=== PATIENT | female | born 1975 | race Caucasian/White ===

== ENCOUNTER 2017-05-23 22:14 | Emergency (ER) | payer MEDICAID ==
[~2017-05-23] VITALS: Ht 157.5 cm; Wt 69.9 kg
[2017-05-23 22:15] VITALS: BP 104/53
[2017-05-23] MEDS ORDERED: DEXAMETHASONE 4 MG TABLET ONE (23:11)
[2017-05-23] MEDS ORDERED: DEXAMETHASONE 4 MG TABLET PO ONE (23:30)
== END 2017-05-24 00:46 | disposition home or self-care (01) ==
LOC: ED 23:00
DX: J04.0 Acute laryngitis (principal); M54.5 Low back pain; Z87.891 Personal history of nicotine dependence
CPT/HCPCS: 70360; 72110; 99284

== ENCOUNTER 2017-10-20 13:43 | Emergency (ER) | payer SELFPAY ==
[~2017-10-20] VITALS: Ht 157.5 cm; Wt 66.8 kg
[2017-10-20 13:46] VITALS: BP 124/73
[2017-10-20] MEDS ORDERED: KETOROLAC 30 MG/1 ML IM ONE (15:00)
[2017-10-20] MEDS ORDERED: KETOROLAC 30 MG/1 ML ONE (15:12)
== END 2017-10-20 16:06 | disposition home or self-care (01) ==
LOC: ED 16:00
DX: S46.912A Strain of unspecified muscle, fascia and tendon at shoulder and upper arm level, left arm, initial encounter (principal); S29.012A Strain of muscle and tendon of back wall of thorax, initial encounter; M25.532 Pain in left wrist; F17.200 Nicotine dependence, unspecified, uncomplicated; X58.XXXA Exposure to other specified factors, initial encounter; Y93.89 Activity, other specified; Y92.89 Other specified places as the place of occurrence of the external cause; Y99.8 Other external cause status
CPT/HCPCS: 96372; 99283; J1885

== ENCOUNTER 2018-10-02 19:06 | Emergency (ER) | payer MEDICAID ==
[~2018-10-02] VITALS: Ht 157.5 cm; Wt 73.0 kg
[2018-10-02] MEDS ORDERED: DIPHENHYDRAMINE 50 MG/ML, 1ML IVPush ONE (19:30)
[2018-10-02] MEDS ORDERED: PROCHLORPERAZINE 5 MG/ML, 2ML IVPush ONE (19:30)
[2018-10-02] MEDS ORDERED: KETOROLAC 30 MG/1 ML IVPush ONE (19:30)
[2018-10-02] MEDS ORDERED: SODIUM CHLORIDE FLUSH 10ML SYR IVF ONE (19:30)
[2018-10-02] MEDS ORDERED: ACETAMINOPHEN 325 MG TABLET PO ONE (19:30)
--- NOTE | 2018-10-02 19:55 | NUR ---
assessment made. ERP at bedside
[2018-10-02] MEDS ORDERED: SODIUM CHLORIDE 0.9% 1,000ML IVBOLUS ONE (20:00)
[2018-10-02] MEDS ORDERED: PROCHLORPERAZINE 5 MG/ML, 2ML ONE (20:00)
[2018-10-02] MEDS ORDERED: DIPHENHYDRAMINE 50 MG/ML, 1ML ONE (20:00)
[2018-10-02] MEDS ORDERED: ACETAMINOPHEN 325 MG TABLET ONE (20:00)
[2018-10-02] MEDS ORDERED: KETOROLAC 30 MG/1 ML ONE (20:00)
--- NOTE | 2018-10-02 20:22 | NUR ---
PT MEDICATED PER JUN. POC DISCUSSED. CALL LIGHT ON LAP. BED RAILS UPX2.
[2018-10-02 20:50] LABS: BASOPHILS # (AUTO) 0.02 x10^3/uL (0-0.1); BASOPHILS % (AUTO) 0 % (0-1); EOSINOPHILS # (AUTO) 0.12 x10^3/uL (0-0.4); EOSINOPHILS % (AUTO) 2 % (1-7); LYMPHOCYTES # (AUTO) 1.57 x10^3/uL (1-3.4); LYMPHOCYTES % (AUTO) 27 % (22-44); MD NO; MEAN CORPUSCULAR HEMOGLOBIN 29.2 pg (27.0-34.8); MEAN CORPUSCULAR HGB CONC 32.7 g/dL (32.4-35.8); MEAN CORPUSCULAR VOLUME 89.3 fL (80-100); MONOCYTES # (AUTO) 0.42 x10^3/uL (0.2-0.8); MONOCYTES % (AUTO) 7 % (2-9); NEUTROPHILS # (AUTO) 3.78 x10^3/uL (1.8-6.8); NEUTROPHILS % (AUTO) 64 % (42-75); PLATELET COUNT 305 x10^3/uL (130-400); RED BLOOD COUNT 4.44 x10^6/uL (3.82-5.3); RED CELL DISTRIBUTION WIDTH 16.2 % (9.6-15.2)
[2018-10-02 21:00] LABS: ALBUMIN 3.5 g/dL (3.4-5.0); ANION GAP 6 mmol/L (5-15); CALCIUM 8.9 mg/dL (8.5-10.1); CHLORIDE 113 mmol/L (98-107); CREATININE 0.89 mg/dL (0.55-1.02)
--- NOTE | 2018-10-02 21:07 | NUR ---
PT GIVEN MULTIPLE BLANKETS PER REQUEST. POC DISCUSSED. WHEN ASKED HOW HER HEADACHE IS PT REPLIES "I DON'T KNOW, FINE I GUESS". PT DENIES FURTHER NEEDS AT THIS TIME. CALL LIGHT ON LAP.
--- NOTE | 2018-10-02 22:17 | NUR ---
MULTIPLE ATTEMPTS HAVE BEEN MADE TO DC PT. PT REPEATEDLY FOUND LAYING BACK DOWN IN BED. PT HAS BEEN ENCOURAGED TO DRESS SELF MULTIPLE TIMES.
[2018-10-02 22:21] VITALS: BP 119/74
== END 2018-10-02 22:47 | disposition home or self-care (01) ==
LOC: ED 20:57
DX: G43.109 Migraine with aura, not intractable, without status migrainosus (principal); E86.0 Dehydration; Z72.9 Problem related to lifestyle, unspecified; F17.210 Nicotine dependence, cigarettes, uncomplicated
CPT/HCPCS: 36415; 80048; 82040; 84703; 85025; 96361; 96374; 96375; 99283; J0780; J1200; J1885; J7030

== ENCOUNTER 2020-04-25 18:18 | Emergency (ER) | payer MEDICAID ==
[~2020-04-25] VITALS: Ht 157.5 cm; Wt 79.9 kg
[2020-04-25] MEDS ORDERED: CLINDAMYCIN PMX 300MG/50ML 50 ML IV ONE (19:41)
[2020-04-25] MEDS ORDERED: SODIUM CHLORIDE FLUSH 10ML SYR IVF ONE (20:00)
[2020-04-25 20:58] VITALS: BP 119/73
--- NOTE | 2020-04-25 21:59 | NUR ---
D/C INSTRUCTIONS, MEDS & F/U APPT RV'WD WITH PT, SHE VERBALIZES UNDERSTANDING. RX GIVEN X1. PT AMBULATED OUT OF ED WITHOUT DIFFICULTY.
== END 2020-04-25 22:00 | disposition home or self-care (01) ==
LOC: ED 20:20
DX: L03.811 Cellulitis of head [any part, except face] (principal); L03.211 Cellulitis of face; R50.9 Fever, unspecified; G43.909 Migraine, unspecified, not intractable, without status migrainosus; Z98.51 Tubal ligation status; Z87.891 Personal history of nicotine dependence
CPT/HCPCS: 96365; 99284

== ENCOUNTER 2020-05-01 14:55 | Emergency (ER) | payer MEDICAID ==
[~2020-05-01] VITALS: Ht 157.5 cm; Wt 79.0 kg
[2020-05-01 17:35] VITALS: BP 124/57
--- NOTE | 2020-05-01 18:03 | NUR ---
conference services manager: pt brought into triage by Travis DELANEY
--- NOTE | 2020-05-01 18:07 | NUR ---
family and consumer sciences teacher: tech present for knee immobilizer placement and crutches
== END 2020-05-01 18:22 | disposition home or self-care (01) ==
LOC: ED 17:30
DX: S83.422A Sprain of lateral collateral ligament of left knee, initial encounter (principal); Z98.51 Tubal ligation status; X50.1XXA Overexertion from prolonged static or awkward postures, initial encounter; Y93.89 Activity, other specified; Y92.488 Other paved roadways as the place of occurrence of the external cause; Y99.8 Other external cause status
CPT/HCPCS: 29505; 99283

== ENCOUNTER 2020-06-30 12:29 | Emergency (ER) | payer MEDICAID ==
[~2020-06-30] VITALS: Ht 160 cm; Wt 82.2 kg
[2020-06-30] MEDS ORDERED: IBUPROFEN 600 MG TABLET PO ONE (13:30)
[2020-06-30] MEDS ORDERED: HYDROcodone/APAP 5/325 TABLET PO ONE (13:30)
[2020-06-30] MEDS ORDERED: HYDROcodone/APAP 5/325 TABLET ONE (13:41)
[2020-06-30] MEDS ORDERED: IBUPROFEN 600 MG TABLET ONE (13:41)
[2020-06-30 13:55] VITALS: BP 124/74
== END 2020-06-30 14:04 | disposition home or self-care (01) ==
LOC: ED 13:44
DX: K02.9 Dental caries, unspecified (principal); K08.89 Other specified disorders of teeth and supporting structures; G43.909 Migraine, unspecified, not intractable, without status migrainosus
CPT/HCPCS: 99283

== ENCOUNTER 2020-09-27 10:09 | Inpatient (IN) | payer MEDICAID ==
[~2020-09-27] VITALS: Ht 157.5 cm; Wt 82.3 kg
--- NOTE | 2020-09-27 10:38 | NUR ---
Patient presents to ER c/o body aches, fevers, weakness, RUFF, and spine pain x4 days. Patient denies trauma. She states 4.5 days ago she was bending over a lot and picking up twigs but states it wasn't anything heavy. Patient is in obvious discomfort. Respirations even and unlabored. Skin slightly mottled.
[2020-09-27] MEDS ORDERED: SODIUM CHLORIDE 0.9% 1,000 ML IV ONE (11:00)
[2020-09-27] MEDS ORDERED: SODIUM CHLORIDE 0.9% 1,000ML IVBOLUS ONE (11:00)
[2020-09-27] MEDS ORDERED: SODIUM CHLORIDE FLUSH 10ML SYR IVF ONE (11:00)
[2020-09-27 11:18] LABS: BASOPHILS % (AUTO) 0 % (0-1); EOSINOPHILS % (AUTO) 0 % (1-7); LYMPHOCYTES % (AUTO) 12 % (22-44); MEAN CORPUSCULAR HEMOGLOBIN 27.7 pg (27.0-34.8); MEAN CORPUSCULAR HGB CONC 33.1 g/dL (32.4-35.8); MEAN PLATELET VOLUME 7.8 fL (7.4-10.4); MONOCYTES % (AUTO) 4 % (2-9); NEUTROPHILS % (AUTO) 84 % (42-75); PLATELET COUNT 189 x10^3/uL (130-400); RED BLOOD COUNT 4.46 x10^6/uL (3.82-5.3); RED CELL DISTRIBUTION WIDTH 17.9 % (9.6-15.2)
[2020-09-27 11:30] LABS: ALANINE AMINOTRANSFERASE 21 U/L (12-78); ALBUMIN 2.7 g/dL (3.4-5.0); ANION GAP 8 mmol/L (5-15); CALCIUM 8.1 mg/dL (8.5-10.1); CHLORIDE 99 mmol/L (98-107); CREATININE 0.72 mg/dL (0.55-1.02)
[2020-09-27] MEDS ORDERED: AZITHROMYCIN 500 MG in SODIUM CHLORIDE 0.9% 250 ML IVPB ONE (11:30)
[2020-09-27] MEDS ORDERED: ONDANSETRON 2MG/ML, 2ML IVPush ONE (11:30)
[2020-09-27] MEDS ORDERED: CEFTRIAXONE 1,000 MG in DEXTROSE 5% 50 ML IVPB ONE (11:30)
[2020-09-27 11:33] LABS: ALKALINE PHOSPHATASE 74 U/L (45-117); BILIRUBIN,TOTAL 0.2 mg/dL (0.2-1.0); TOTAL PROTEIN 6.9 g/dL (6.4-8.2)
[2020-09-27] MEDS ORDERED: ONDANSETRON 2MG/ML, 2ML ONE (11:33)
[2020-09-27] MEDS ORDERED: ONDANSETRON ODT 4 MG PO PRN (12:00)
[2020-09-27] MEDS ORDERED: hydrALAzine 20 MG/ML, 1ML IVPush PRN (12:00)
[2020-09-27] MEDS ORDERED: SODIUM CHLORIDE 0.9% 1,000ML IV ONE (12:00)
[2020-09-27] MEDS ORDERED: BACLOFEN 10 MG TABLET PO PRN (12:00)
[2020-09-27] MEDS ORDERED: SODIUM CHLORIDE FLUSH 10ML SYR IVF PRN (12:00)
[2020-09-27] MEDS ORDERED: ONDANSETRON 2MG/ML, 2ML IVPush PRN (12:00)
[2020-09-27] MEDS ORDERED: ENALAPRILAT 1.25 MG/ML, 2ML IVPush PRN (12:00)
[2020-09-27] MEDS ORDERED: CYANOCOBALAMIN 1,000 MCG/ML, 1ML IM ONE (12:00)
[2020-09-27] MEDS ORDERED: ZINC SULFATE 220 MG CAPSULE PO SCH (12:00)
--- NOTE | 2020-09-27 12:42 | NUR ---
REPORT TO DOUGIE TRONCOSO
[2020-09-27 12:57] LABS: MICROSCOPIC INDICATED
[2020-09-27 13:20] VITALS: BP 105/61
[2020-09-27] MEDS: ACETAMINOPHEN 325 MG TABLET PO PRN (13:27)
[2020-09-27] MEDS: CHOLECALCIFEROL 5,000u TAB PO SCH (14:06)
[2020-09-27] MEDS: ENOXAPARIN 40 MG/0.4 ML SQ SCH (14:06)
[2020-09-27] MEDS: MULTIVITS,STRESS FORMULA 1 TABLET PO SCH (14:07)
[2020-09-27 19:51] VITALS: BP 108/65
[2020-09-27] MEDS: MELATONIN 5 MG TABLET PO SCH (21:18)
[2020-09-27] MEDS: ASCORBIC ACID 500 MG TABLET PO SCH (21:18)
[2020-09-27] MEDS: CEFDINIR 300 MG CAPSULE PO SCH (21:18)
[2020-09-28 01:33] VITALS: BP 103/66
[2020-09-28 05:52] LABS: BASOPHILS % (AUTO) 0 % (0-1); EOSINOPHILS % (AUTO) 0 % (1-7); LYMPHOCYTES % (AUTO) 22 % (22-44); MEAN CORPUSCULAR HEMOGLOBIN 27.8 pg (27.0-34.8); MEAN CORPUSCULAR HGB CONC 32.8 g/dL (32.4-35.8); MEAN PLATELET VOLUME 8.2 fL (7.4-10.4); MONOCYTES % (AUTO) 3 % (2-9); NEUTROPHILS % (AUTO) 76 % (42-75); PLATELET COUNT 171 x10^3/uL (130-400); RED BLOOD COUNT 4.24 x10^6/uL (3.82-5.3)
[2020-09-28 06:00] LABS: ALANINE AMINOTRANSFERASE 15 U/L (12-78); ALBUMIN 2.4 g/dL (3.4-5.0); ANION GAP 8 mmol/L (5-15); CALCIUM 7.9 mg/dL (8.5-10.1); CHLORIDE 101 mmol/L (98-107); CREATININE 0.74 mg/dL (0.55-1.02)
[2020-09-28 06:02] LABS: ALKALINE PHOSPHATASE 66 U/L (45-117); BILIRUBIN,TOTAL 0.3 mg/dL (0.2-1.0); TOTAL PROTEIN 6.3 g/dL (6.4-8.2)
[2020-09-28 08:05] VITALS: BP 91/62
[2020-09-28] MEDS: SENNA/DOCUSATE TABLET PO SCH (09:00)
[2020-09-28] MEDS: MULTIVITS,STRESS FORMULA 1 TABLET PO SCH (09:00)
[2020-09-28] MEDS: ZINC SULFATE 220 MG CAPSULE PO SCH (10:05)
[2020-09-28] MEDS: GUAIFENESIN/DM 200-20MG, 10ML UDC PO PRN (10:05)
[2020-09-28] MEDS: ASCORBIC ACID 500 MG TABLET PO SCH ×2 (10:05→17:00)
[2020-09-28] MEDS: CHOLECALCIFEROL 5,000u TAB PO SCH (10:07)
[2020-09-28] MEDS: CEFDINIR 300 MG CAPSULE PO SCH ×2 (10:07→20:22)
[2020-09-28] MEDS: AZITHROMYCIN 250 MG TABLET PO SCH (10:07)
[2020-09-28] MEDS: IVERMECTIN 3 MG TAB PO SCH (10:09)
[2020-09-28] MEDS: HYDROcodone/APAP 5/325 TABLET PO PRN ×2 (10:24→20:23)
[2020-09-28 12:55] VITALS: BP 97/65
[2020-09-28] MEDS: ENOXAPARIN 40 MG/0.4 ML SQ SCH (13:52)
[2020-09-28] MEDS ORDERED: POTASSIUM PHOSPHATE 44 MEQ in SODIUM CHLORIDE 0.9% 500 ML IV ONE (14:00)
[2020-09-28] MEDS ORDERED: MAGNESIUM SULFATE PMX 2GM/50ML 50 ML IV ONE (14:00)
[2020-09-28] MEDS: MELATONIN 5 MG TABLET PO SCH (20:23)
[2020-09-28 20:41] VITALS: BP 98/60
[2020-09-29 02:35] VITALS: BP 97/62
[2020-09-29] MEDS: ACETAMINOPHEN 325 MG TABLET PO PRN ×3 (02:36→22:36)
[2020-09-29 05:30] LABS: BASOPHILS % (AUTO) 0 % (0-1); EOSINOPHILS % (AUTO) 0 % (1-7); LYMPHOCYTES % (AUTO) 11 % (22-44); MEAN CORPUSCULAR HEMOGLOBIN 27.5 pg (27.0-34.8); MEAN PLATELET VOLUME 8.4 fL (7.4-10.4); MONOCYTES % (AUTO) 3 % (2-9); NEUTROPHILS % (AUTO) 86 % (42-75); PLATELET COUNT 152 x10^3/uL (130-400); RED BLOOD COUNT 4.12 x10^6/uL (3.82-5.3)
[2020-09-29 05:34] LABS: ALBUMIN 2.1 g/dL (3.4-5.0); ANION GAP 10 mmol/L (5-15); CALCIUM 7.8 mg/dL (8.5-10.1); CHLORIDE 101 mmol/L (98-107); CREATININE 0.59 mg/dL (0.55-1.02)
[2020-09-29 06:45] VITALS: BP 105/70
[2020-09-29] MEDS: AZITHROMYCIN 250 MG TABLET PO SCH (08:12)
[2020-09-29] MEDS: CEFDINIR 300 MG CAPSULE PO SCH ×2 (08:12→21:43)
[2020-09-29] MEDS: IVERMECTIN 3 MG TAB PO SCH (08:12)
[2020-09-29] MEDS: ASCORBIC ACID 500 MG TABLET PO SCH ×2 (08:12→14:45)
[2020-09-29] MEDS: ZINC SULFATE 220 MG CAPSULE PO SCH (08:13)
[2020-09-29] MEDS: HYDROcodone/APAP 5/325 TABLET PO PRN (08:13)
[2020-09-29] MEDS: SENNA/DOCUSATE TABLET PO SCH (08:13)
[2020-09-29] MEDS: GUAIFENESIN/DM 200-20MG, 10ML UDC PO PRN ×2 (08:14→14:46)
[2020-09-29] MEDS: CHOLECALCIFEROL 5,000u TAB PO SCH (08:14)
[2020-09-29] MEDS: MULTIVITS,STRESS FORMULA 1 TABLET PO SCH (09:00)
[2020-09-29 13:25] VITALS: BP 103/65
[2020-09-29] MEDS: ENOXAPARIN 40 MG/0.4 ML SQ SCH (14:46)
[2020-09-29 21:36] VITALS: BP 119/79
[2020-09-29] MEDS: MELATONIN 5 MG TABLET PO SCH (21:44)
[2020-09-30 02:00] VITALS: BP 104/71
[2020-09-30] MEDS: ACETAMINOPHEN 325 MG TABLET PO PRN (03:07)
[2020-09-30 05:42] LABS: ALANINE AMINOTRANSFERASE 19 U/L (12-78); ANION GAP 9 mmol/L (5-15); CALCIUM 8.3 mg/dL (8.5-10.1); CHLORIDE 102 mmol/L (98-107); CREATININE 0.58 mg/dL (0.55-1.02)
[2020-09-30 05:44] LABS: ALKALINE PHOSPHATASE 64 U/L (45-117); BILIRUBIN,TOTAL 0.3 mg/dL (0.2-1.0); TOTAL PROTEIN 6.4 g/dL (6.4-8.2)
[2020-09-30 06:22] LABS: BASOPHILS % (AUTO) 0 % (0-1); EOSINOPHILS % (AUTO) 0 % (1-7); LYMPHOCYTES % (AUTO) 11 % (22-44); MEAN CORPUSCULAR HEMOGLOBIN 27.5 pg (27.0-34.8); MEAN CORPUSCULAR HGB CONC 32.7 g/dL (32.4-35.8); MEAN PLATELET VOLUME 8.5 fL (7.4-10.4); MONOCYTES % (AUTO) 3 % (2-9); NEUTROPHILS % (AUTO) 86 % (42-75); PLATELET COUNT 175 x10^3/uL (130-400); RED CELL DISTRIBUTION WIDTH 18.1 % (9.6-15.2)
[2020-09-30 06:23] LABS: INTERNATIONAL NORMALIZED RATIO 1.02 (0.93-1.1); PROTHROMBIN TIME 10.9 Seconds (9.6-11.5)
[2020-09-30] MEDS ORDERED: REMDESIVIR 200 MG in SODIUM CHLORIDE 0.9% 250 ML IVPB ONE (08:00)
[2020-09-30 08:13] LABS: TROPONIN I < 0.015 ng/mL (0.000-0.045)
[2020-09-30] MEDS: MULTIVITS,STRESS FORMULA 1 TABLET PO SCH (09:00)
[2020-09-30] MEDS: CHOLECALCIFEROL 5,000u TAB PO SCH (09:00)
[2020-09-30] MEDS: CEFDINIR 300 MG CAPSULE PO SCH ×2 (09:00→20:42)
[2020-09-30] MEDS: SENNA/DOCUSATE TABLET PO SCH (09:00)
[2020-09-30] MEDS: ASCORBIC ACID 500 MG TABLET PO SCH ×2 (09:39→17:10)
[2020-09-30] MEDS: AZITHROMYCIN 250 MG TABLET PO SCH (09:40)
[2020-09-30] MEDS: ZINC SULFATE 220 MG CAPSULE PO SCH (09:40)
[2020-09-30] MEDS: DEXAMETHASONE 4 MG TABLET PO SCH (09:40)
[2020-09-30] MEDS: HYDROcodone/APAP 5/325 TABLET PO PRN ×2 (09:55→22:45)
[2020-09-30 12:58] VITALS: BP 90/60
[2020-09-30] MEDS: ENOXAPARIN 40 MG/0.4 ML SQ SCH (14:16)
[2020-09-30 19:04] VITALS: BP 104/68
[2020-09-30] MEDS: MELATONIN 5 MG TABLET PO SCH (20:41)
[2020-09-30] MEDS: GUAIFENESIN/DM 200-20MG, 10ML UDC PO PRN (22:45)
[2020-10-01 02:09] VITALS: BP 102/68
[2020-10-01 06:28] LABS: ANION GAP 9 mmol/L (5-15); CALCIUM 8.5 mg/dL (8.5-10.1); CHLORIDE 100 mmol/L (98-107)
[2020-10-01 06:31] LABS: ALANINE AMINOTRANSFERASE 20 U/L (12-78); ALKALINE PHOSPHATASE 68 U/L (45-117); BILIRUBIN,TOTAL 0.2 mg/dL (0.2-1.0); CREATININE 0.52 mg/dL (0.55-1.02); TOTAL PROTEIN 6.5 g/dL (6.4-8.2)
[2020-10-01] MEDS: MULTIVITS,STRESS FORMULA 1 TABLET PO SCH (09:00)
[2020-10-01] MEDS: CEFDINIR 300 MG CAPSULE PO SCH ×2 (09:18→21:01)
[2020-10-01] MEDS: REMDESIVIR 100 MG in SODIUM CHLORIDE 0.9% 250 ML IVPB SCH (09:18)
[2020-10-01 09:19] VITALS: BP 94/63
[2020-10-01] MEDS: AZITHROMYCIN 250 MG TABLET PO SCH (09:19)
[2020-10-01] MEDS: BUTALB/APAP/CAFFEINE 50MG/325MG/40MG PO PRN ×2 (09:19→21:01)
[2020-10-01] MEDS: ASCORBIC ACID 500 MG TABLET PO SCH ×2 (09:19→17:00)
[2020-10-01] MEDS: CHOLECALCIFEROL 5,000u TAB PO SCH (09:19)
[2020-10-01] MEDS: SENNA/DOCUSATE TABLET PO SCH (09:19)
[2020-10-01] MEDS: DEXAMETHASONE 4 MG TABLET PO SCH (09:19)
[2020-10-01] MEDS: ZINC SULFATE 220 MG CAPSULE PO SCH (09:20)
[2020-10-01 12:48] VITALS: BP 97/66
[2020-10-01] MEDS: ENOXAPARIN 40 MG/0.4 ML SQ SCH (12:48)
[2020-10-01 18:44] VITALS: BP 104/70
[2020-10-01] MEDS: GUAIFENESIN/DM 200-20MG, 10ML UDC PO PRN (21:01)
[2020-10-01] MEDS: MELATONIN 5 MG TABLET PO SCH (21:01)
[2020-10-02 00:08] VITALS: BP 113/78
[2020-10-02 05:49] LABS: BASOPHILS % (AUTO) 1 % (0-1); EOSINOPHILS % (AUTO) 0 % (1-7); LYMPHOCYTES % (AUTO) 13 % (22-44); MEAN CORPUSCULAR HEMOGLOBIN 27.2 pg (27.0-34.8); MEAN CORPUSCULAR HGB CONC 32.6 g/dL (32.4-35.8); MEAN PLATELET VOLUME 8.7 fL (7.4-10.4); MONOCYTES % (AUTO) 9 % (2-9); NEUTROPHILS % (AUTO) 77 % (42-75); PLATELET COUNT 263 x10^3/uL (130-400); RED BLOOD COUNT 4.09 x10^6/uL (3.82-5.3); RED CELL DISTRIBUTION WIDTH 18.2 % (9.6-15.2)
[2020-10-02 06:02] LABS: ANION GAP 6 mmol/L (5-15); CALCIUM 8.6 mg/dL (8.5-10.1); CHLORIDE 104 mmol/L (98-107)
[2020-10-02 06:07] LABS: ALANINE AMINOTRANSFERASE 22 U/L (12-78); ALKALINE PHOSPHATASE 57 U/L (45-117); BILIRUBIN,TOTAL 0.2 mg/dL (0.2-1.0); CREATININE 0.49 mg/dL (0.55-1.02); TOTAL PROTEIN 6.2 g/dL (6.4-8.2)
[2020-10-02] MEDS: REMDESIVIR 100 MG in SODIUM CHLORIDE 0.9% 250 ML IVPB SCH (07:51)
[2020-10-02] MEDS: CHOLECALCIFEROL 5,000u TAB PO SCH (07:52)
[2020-10-02] MEDS: DEXAMETHASONE 4 MG TABLET PO SCH (07:52)
[2020-10-02] MEDS: ZINC SULFATE 220 MG CAPSULE PO SCH (07:52)
[2020-10-02] MEDS: SENNA/DOCUSATE TABLET PO SCH (07:52)
[2020-10-02] MEDS: ASCORBIC ACID 500 MG TABLET PO SCH ×2 (07:52→17:00)
[2020-10-02] MEDS: AZITHROMYCIN 250 MG TABLET PO SCH (07:53)
[2020-10-02] MEDS: CEFDINIR 300 MG CAPSULE PO SCH ×2 (07:53→21:28)
[2020-10-02] MEDS: MULTIVITS,STRESS FORMULA 1 TABLET PO SCH (08:02)
[2020-10-02] MEDS ORDERED: CALCIUM CARBONATE 500 MG TAB.CHEW PO PRN (09:00)
[2020-10-02 12:16] VITALS: BP 98/63
[2020-10-02] MEDS: ENOXAPARIN 40 MG/0.4 ML SQ SCH (12:22)
[2020-10-02] MEDS ORDERED: POTASSIUM CHLORIDE 20 MEQ TAB.ER.PRT PO ONE (19:00)
[2020-10-02 20:08] VITALS: BP 95/62
[2020-10-02] MEDS: MELATONIN 5 MG TABLET PO SCH (21:28)
[2020-10-03 05:05] VITALS: BP 107/71
[2020-10-03 05:47] LABS: ALBUMIN 1.9 g/dL (3.4-5.0); ANION GAP 6 mmol/L (5-15); CALCIUM 8.4 mg/dL (8.5-10.1); CHLORIDE 107 mmol/L (98-107)
[2020-10-03 05:51] LABS: ALANINE AMINOTRANSFERASE 25 U/L (12-78); ALKALINE PHOSPHATASE 53 U/L (45-117); BILIRUBIN,TOTAL 0.3 mg/dL (0.2-1.0); CREATININE 0.44 mg/dL (0.55-1.02); TOTAL PROTEIN 5.9 g/dL (6.4-8.2)
[2020-10-03 07:30] VITALS: BP 100/66
[2020-10-03] MEDS: SENNA/DOCUSATE TABLET PO SCH (09:00)
[2020-10-03] MEDS: REMDESIVIR 100 MG in SODIUM CHLORIDE 0.9% 250 ML IVPB SCH (09:03)
[2020-10-03] MEDS: DEXAMETHASONE 4 MG TABLET PO SCH (09:03)
[2020-10-03] MEDS: ZINC SULFATE 220 MG CAPSULE PO SCH (09:04)
[2020-10-03] MEDS: ASCORBIC ACID 500 MG TABLET PO SCH ×2 (09:04→17:37)
[2020-10-03] MEDS: CEFDINIR 300 MG CAPSULE PO SCH ×2 (09:04→21:51)
[2020-10-03] MEDS: CHOLECALCIFEROL 5,000u TAB PO SCH (09:04)
[2020-10-03] MEDS: AZITHROMYCIN 250 MG TABLET PO SCH (09:04)
[2020-10-03] MEDS: MULTIVITS,STRESS FORMULA 1 TABLET PO SCH (09:05)
[2020-10-03] MEDS: BUTALB/APAP/CAFFEINE 50MG/325MG/40MG PO PRN (09:51)
[2020-10-03 12:30] VITALS: BP 91/57
[2020-10-03] MEDS: ENOXAPARIN 40 MG/0.4 ML SQ SCH (13:27)
[2020-10-03 19:59] VITALS: BP 109/67
[2020-10-03] MEDS: MELATONIN 5 MG TABLET PO SCH (21:52)
[2020-10-04 02:14] VITALS: BP 115/62
[2020-10-04 05:35] LABS: ALBUMIN 2.1 g/dL (3.4-5.0); ANION GAP 7 mmol/L (5-15); CALCIUM 8.4 mg/dL (8.5-10.1); CHLORIDE 106 mmol/L (98-107)
[2020-10-04 05:39] LABS: ALANINE AMINOTRANSFERASE 31 U/L (12-78); ALKALINE PHOSPHATASE 55 U/L (45-117); BILIRUBIN,TOTAL 0.2 mg/dL (0.2-1.0); TOTAL PROTEIN 6.1 g/dL (6.4-8.2)
[2020-10-04] MEDS: BUTALB/APAP/CAFFEINE 50MG/325MG/40MG PO PRN (07:54)
[2020-10-04] MEDS: MULTIVITS,STRESS FORMULA 1 TABLET PO SCH (09:00)
[2020-10-04] MEDS: SENNA/DOCUSATE TABLET PO SCH (09:00)
[2020-10-04 09:02] VITALS: BP 102/69
[2020-10-04] MEDS: REMDESIVIR 100 MG in SODIUM CHLORIDE 0.9% 250 ML IVPB SCH (09:27)
[2020-10-04] MEDS: CEFDINIR 300 MG CAPSULE PO SCH (09:34)
[2020-10-04] MEDS: ASCORBIC ACID 500 MG TABLET PO SCH (09:34)
[2020-10-04] MEDS: ZINC SULFATE 220 MG CAPSULE PO SCH (09:34)
[2020-10-04] MEDS: DEXAMETHASONE 4 MG TABLET PO SCH (09:34)
[2020-10-04] MEDS: AZITHROMYCIN 250 MG TABLET PO SCH (09:34)
[2020-10-04] MEDS: CHOLECALCIFEROL 5,000u TAB PO SCH (09:34)
[2020-10-04 13:56] VITALS: BP 98/64
[2020-10-04] MEDS: ENOXAPARIN 40 MG/0.4 ML SQ SCH (14:26)
[2020-10-04] MEDS ORDERED: CEFD300C37 PO (16:34)
== END 2020-10-04 17:45 | disposition home or self-care (01) | DRG 871 ==
LOC: ED 10:14 → EDIP 11:46 → 4WST 13:11
PROVIDERS: ADMIT Family Medicine; ATTEND Family Medicine
PROC: XW033E5 Introduction of Remdesivir Anti-infective into Peripheral Vein, Percutaneous Approach, New Technology Group 5 (ICD-10-PCS; principal; 2020-09-30)
DX: A41.89 Other specified sepsis (principal); J15.9 Unspecified bacterial pneumonia; J12.82 Pneumonia due to coronavirus disease 2019; J96.01 Acute respiratory failure with hypoxia; U07.1 COVID-19; E46 Unspecified protein-calorie malnutrition; E87.1 Hypo-osmolality and hyponatremia; N39.0 Urinary tract infection, site not specified; E55.9 Vitamin D deficiency, unspecified; E86.0 Dehydration; E87.6 Hypokalemia; R65.20 Severe sepsis without septic shock; R00.1 Bradycardia, unspecified
CPT/HCPCS: 36415; 71045; 80053; 80069; 81001; 82306; 83605; 83615; 83735; 83970; 84100; 84145; 84443; 84484; 85025; 85379; 85610; 87040; 87086; 93005; 93306; 96365; 99285; G0378; J0456; J0696; J1650; J2405; U0005; J3420; J3475; J7030; J7040; J7050; U0003